=== PATIENT | female | born 1980 ===

== ENCOUNTER 2017-10-30 09:42 | Outpatient (CLI) | payer OTHER ==
[~2017-10-30] VITALS: Ht 167.6 cm; Wt 81.6 kg
== END 2017-10-30 10:00 | disposition home or self-care (01) ==
LOC: OFIC 805 09:42
DX: H66.92 Otitis media, unspecified, left ear (principal); R04.0 Epistaxis; J32.8 Other chronic sinusitis

== ENCOUNTER 2018-02-15 09:53 | Outpatient (CLI) | payer OTHER | END 2018-02-15 10:39 | disposition home or self-care (01) | LOC: NST 09:53 | DX: Z34.83 Encounter for supervision of other normal pregnancy, third trimester (principal) ==